=== PATIENT | male | born 1975 | race Caucasian/White ===

== ENCOUNTER 2017-06-03 19:08 | Emergency (ER) | payer OTHER ==
[~2017-06-03] VITALS: Ht 190.5 cm; Wt 158.8 kg
[2017-06-03] MEDS ORDERED: NITROGLYCERIN 0.4 MG/TAB BOTTLE SL ONE ×2 (19:30→19:39)
--- NOTE | 2017-06-03 19:33 | NUR ---
After 1st dose of nitro patient states "My chest pain is gone now."
[2017-06-03] MEDS ORDERED: FURO20TA90 (19:39)
[2017-06-03] MEDS ORDERED: IV NORMAL SALINE 250 ML BAG IV ONE (19:45)
[2017-06-03 19:48] LABS: BASOPHILS # (AUTO) 0.1 K/uL (0.0-8.0); BASOPHILS % (AUTO) 1.2 % (0.0-2.0); EOSINOPHILS # (AUTO) 0.3 K/uL (0.0-0.7); EOSINOPHILS % (AUTO) 3.1 % (0.0-7.0); HEMOGLOBIN 14.2 G/DL (14.0-18.0); LYMPHOCYTES # (AUTO) 1.7 K/UL (0.8-4.8); LYMPHOCYTES % (AUTO) 18.5 % (20.5-51.5); MEAN CORPUSCULAR HEMOGLOBIN 28.3 UUG (27.0-31.0); MEAN CORPUSCULAR HGB CONC 33 g/dL (32.0-37.0); MEAN CORPUSCULAR VOLUME 85.4 FL (82.0-92.0); MONOCYTES # (AUTO) 0.7 K/UL (0.1-1.30); MONOCYTES % (AUTO) 8.2 % (0.0-11.0); NEUTROPHILS # (AUTO) 6.3 K/UL (1.8-8.9); PLATELET COUNT (AUTO) 359 K/UL (150-450); RED BLOOD CELL COUNT(AUTO) 5.03 MIL/UL (4.7-6.1); WHITE BLOOD COUNT (AUTO) 9.1 K/UL (4.0-11.2)
--- NOTE | 2017-06-03 19:52 | NUR ---
IV removed. Catheter intact and site benign. Pressure and 4x4 gauze applied to site. No bleeding noted.
--- NOTE | 2017-06-03 19:54 | NUR ---
Patient does not wish to proceed with medical care recommended by Dr. Gregorio Wang ). Patient given information related to possible complications, up to and including , which could occur as a result of leaving the hospital at this time. Patient verbalizes understanding of risks involved due to leaving against medical advice. Patient has signed AMA form.
[2017-06-03 19:58] LABS: CREATININE 1.1 mg/dL (0.6-1.3); POTASSIUM 3.5 mmol/L (3.5-5.1)
[2017-06-03 20:02] VITALS: BP 114/78
[2017-06-03 20:04] LABS: BILIRUBIN,DIRECT 0.1 mg/dL (0.0-0.2); BILIRUBIN,TOTAL 0.7 mg/dL (0.2-1.0); TOTAL PROTEIN, SERUM 7.6 g/dL (6.4-8.2)
== END 2017-06-03 20:03 | disposition left against medical advice (07) ==
LOC: ER 19:08
DX: R07.9 Chest pain, unspecified (principal); R10.9 Unspecified abdominal pain; I25.2 Old myocardial infarction
CPT/HCPCS: 36415; 70030-TC; 85025; 85730; 93005; A4663; J7050